=== PATIENT | female | born 1980 | race Caucasian/White ===

== ENCOUNTER 2017-05-23 13:00 | Emergency (ER) | payer MEDICAID ==
[~2017-05-23] VITALS: Ht 162.6 cm; Wt 83.2 kg
[2017-05-23 13:05] VITALS: BP 121/78
== END 2017-05-23 14:40 | disposition home or self-care (01) ==
LOC: ED 14:31
DX: J01.00 Acute maxillary sinusitis, unspecified (principal); J01.10 Acute frontal sinusitis, unspecified; K02.9 Dental caries, unspecified
CPT/HCPCS: 99283

== ENCOUNTER 2017-11-24 11:04 | Emergency (ER) | payer BC ==
[~2017-11-24] VITALS: Ht 162.6 cm; Wt 79.2 kg
[2017-11-24 11:09] VITALS: BP 109/76
[2017-11-24] MEDS ORDERED: DEXAMETHASONE 4 MG TABLET ONE (12:26)
[2017-11-24] MEDS ORDERED: DEXAMETHASONE 4 MG/ML, 1ML PO ONE (12:30)
== END 2017-11-24 13:07 | disposition home or self-care (01) ==
LOC: ED 12:50
DX: J20.8 Acute bronchitis due to other specified organisms (principal)
CPT/HCPCS: 71046; 99284; J1100

== ENCOUNTER 2018-11-05 14:37 | Emergency (ER) | payer BC ==
[~2018-11-05] VITALS: Ht 162.6 cm; Wt 82.6 kg
[2018-11-05 14:43] VITALS: BP 122/77
== END 2018-11-05 16:10 | disposition home or self-care (01) ==
LOC: ED 16:04
DX: K12.0 Recurrent oral aphthae (principal)
CPT/HCPCS: 99281